=== PATIENT | male | born 1970 | race Caucasian/White ===

== ENCOUNTER → 2018-11-05 | Outpatient (CLI) | payer SELFPAY ==
[~2018-11-05] MED LIST: ACTOS30 MG PO; CEPHALEXIN500 M1 PO; GLUCOTROL XL10 MG PO; LEVAQUIN 5500 MG/TA1 PO; LIPITOR 10MG10 MG PO; LORTAB 5/500 501 TAB PO; MELOXICAM7.5 MG PO; METFORMIN1000 MG PO; NORVASC5 MG PO; PERCOCET 325 MG1 TA2 PO; PROVENTIL0.09 MG/A1 IH; SEPTRA DS 8001 TAB PO; TOPROL XL100 MG PO; ZITHROMAX TRI-500 MG PO
== END ==
LOC: COL.RAD 10:36
DX: J20.9 Acute bronchitis, unspecified (principal)